=== PATIENT | male | born 1945 | race Caucasian/White ===

== ENCOUNTER 2023-02-14 09:11 | Day surgery (SDC) | payer MEDICARE ==
[~2023-02-14 09:11] MED LIST: Propofol 200 MG/20 ML SDV ONE
[2023-02-14] MEDS ORDERED: Sodium Chloride 0.9% 10 ML Syringe FLUSH PRN (09:15)
[2023-02-14] MEDS ORDERED: Lactated Ringers 1,000 ML IV SCH (09:15)
[2023-02-14] MEDS ORDERED: Propofol 200 MG/20 ML SDV ONE (10:58)
== END 2023-02-14 11:40 | disposition home or self-care (01) ==
LOC: LL.SDS 09:11
PROVIDERS: ATTEND Surgery
DX: Z12.11 Encounter for screening for malignant neoplasm of colon (principal); E78.5 Hyperlipidemia, unspecified; F41.1 Generalized anxiety disorder; F33.41 Major depressive disorder, recurrent, in partial remission; I10 Essential (primary) hypertension; E11.9 Type 2 diabetes mellitus without complications; N40.1 Benign prostatic hyperplasia with lower urinary tract symptoms; R33.9 Retention of urine, unspecified; N31.9 Neuromuscular dysfunction of bladder, unspecified; Z98.890 Other specified postprocedural states; Z86.010 Personal history of colon polyps; Z79.899 Other long term (current) drug therapy; Z79.84 Long term (current) use of oral hypoglycemic drugs
CPT/HCPCS: J2704; J7120